=== PATIENT | female | born 1940 | race Caucasian/White ===

== ENCOUNTER → 2017-04-07 | Day surgery (SDC) | payer MEDICARE, OTHER ==
[~2017-04-07] VITALS: Ht 160 cm; Wt 71.0 kg
[~2017-04-07] MED LIST: 0.9% Sodium Chloride 1,000 ML IV SCH; ALBU18HF INH; ASPI-973 PO; ATEN25TA PO; CALC-72 PO; CODE10LI PO; CYCL5TAB PO; L AC460C PO; LOVA10TA PO; MELA1TAB10 PO; METO25TA6 PO; Sodium Chloride LOK Flush 10 mL Syringe IV PRN; fentaNYL-PF 50 mCg/mL 2 mL Inj IVPUSH PRN
[2017-04-07 09:34] VITALS: BP 140/72; PULSE 64; RESP 16; O2SAT 97
[2017-04-07 10:36] VITALS: BP 119/71; PULSE 68; RESP 12; O2SAT 94
[2017-04-07 10:46] VITALS: BP 117/61; PULSE 65; RESP 12; O2SAT 96
[2017-04-07 10:51] VITALS: BP 137/70; PULSE 70; RESP 12; O2SAT 95
--- NOTE | 2017-04-07 14:10 | ENDO ---
[address] [address] ENDOSCOPY PROCEDURE PATIENT: LINDSEY GOETZ : 1940 MR#: [id number] ADMIT: 04/07/2017 JOB ID: [id number] DATE: 04/07/2017 PROCEDURE: Colonoscopy. INDICATION: Screening. Patient's ASA classification is II. Mallampati score is II. MEDICATIONS: Versed 5 mg, fentanyl 100 mcg. INSTRUMENT USED: PCF-H180AL PREPARATION QUALITY: Was good. PROCEDURE DETAILS: After informed consent was obtained, the patient was brought into the GI suite, where she was placed on oxygen via nasal cannula and monitored with continuous pulse oximeter, telemetry, and blood pressure monitoring. A time-out was performed. Then, she was placed in a left lateral decubitus position and medications were administered for sedation. Digital rectal exam was performed which was unremarkable. The colonoscope was then inserted into the rectum and advanced under direct visualization to the cecum, which was identified by the presence of the ileocecal valve and appendiceal orifice. Once the cecum was reached, the colonoscope was withdrawn back in the rectum, and the mucosa and lumen were examined. In the rectum, retroflexion was performed. Following retroflexion, remaining air in the rectum was suctioned, and procedure was completed. FINDINGS: 1. In the cecum there was a 6 mm sessile polyp that was removed with a hot snare. 2. Scattered diverticula were seen throughout the left side of the colon. IMPRESSION: 1. Cecal polyp. 2. Left-sided diverticulosis. RECOMMENDATIONS: 1. Avoid NSAIDs and anticoagulants for 72 hours. 2. Repeat colonoscopy in five years. 3. Fiber rich diet. COMPLICATIONS: None. ESTIMATED BLOOD LOSS: Zero please.
--- NOTE | 2017-04-11 09:18 | PATH ---
SURGICAL PATHOLOGY Attending Physician:Mario Downey CASE STATUS: Signed Out PATIENT NAME: LINDSEY GOETZ PID: [id number] : 1940 DATE COLLECTED:04/07/2017 22:16 SPECIMEN: Colon, Polyp CLINICAL HISTORY: 1). CECAL POLYP X1 FINAL DIAGNOSIS: Cecal Polyp x1, Biopsy: - Tubular adenoma. - Additional deeper levels examined. ICD10: D12.6 GROSS DESCRIPTION: The specimen is received in one formalin filled container labeled with the patient's name, sublabeled "cecal polyp" and consists of a 0.3 x 0.2 x 0.2 CM portion of tissue which is entirely submitted in one cassette. 04/07/2017MD ICD-9 CODES: CPT CODES: 1: 86943 Electronically Signed Out Matthew Paige MD [facility] Pathology [facility], [place] [address] Technical component performed at [facility], [facility] [address], [place], [address]
== END | disposition home or self-care (01) ==
LOC: END 00:57
PROVIDERS: ATTEND Internal Medicine Gastroenterology
DX: Z12.11 Encounter for screening for malignant neoplasm of colon (principal); D12.0 Benign neoplasm of cecum; K57.30 Diverticulosis of large intestine without perforation or abscess without bleeding; I10 Essential (primary) hypertension; E78.5 Hyperlipidemia, unspecified; M85.80 Other specified disorders of bone density and structure, unspecified site; R35.0 Frequency of micturition; L65.9 Nonscarring hair loss, unspecified; Z79.82 Long term (current) use of aspirin; Z79.899 Other long term (current) drug therapy
CPT/HCPCS: 45385; 99153; G0500; J2250; J3010; J7030